=== PATIENT | male | born 2000 | race Caucasian/White ===

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

== ENCOUNTER 2023-10-12 05:36 | Emergency (ER) | payer OTHER ==
[~2023-10-12] VITALS: Ht 170.2 cm; Wt 65.2 kg
[2023-10-12 07:31] VITALS: BP 138/86; PULSE 79; RESP 18; TEMP 98.2; O2SAT 98
[2023-10-12] MEDS ORDERED: METH-1181 PO (08:09)
[2023-10-12] MEDS ORDERED: NAPR-746 PO (08:09)
[2023-10-12] MEDS ORDERED: ACETAMINOPHEN 500 MG TAB PO ONE (08:15)
== END 2023-10-12 08:14 | disposition home or self-care (01) ==
LOC: ER 05:36
DX: S16.1XXA Strain of muscle, fascia and tendon at neck level, initial encounter (principal); V43.52XA Car driver injured in collision with other type car in traffic accident, initial encounter; Y93.89 Activity, other specified; Y92.488 Other paved roadways as the place of occurrence of the external cause; Y99.8 Other external cause status
CPT/HCPCS: 72040